=== PATIENT | male | born 1960 ===

== ENCOUNTER 2016-10-09 13:41 | Observation (INO) | payer MEDICAID ==
--- NOTE | 2016-10-09 14:18 | ED PDOC ---
HPI: Psych/Substance Abuse Time Seen by Provider: 10/09/16 14:15 Chief Complaint (Nursing): Alcohol Ingestion Chief Complaint (Provider): etoh History Per: Patient Additional Complaint(s): 56 year old non-domiciled male presents to ED acutely intoxicated. He denies any fall or any recent trauma. He admits to drinking today and states he drinks daily. Patient states he is concerned he either has body lice or other infestation. He denies any rash, fever or chills. Patient denies any chest pain despite chief complaint stating otherwise. Past Medical History Reviewed: Historical Data, Nursing Documentation, Vital Signs Vital Signs: Last Vital Signs Temp 97.0 F L 10/09/16 13:51 Pulse 84 10/09/16 13:51 Resp 14 10/09/16 13:51 BP 144/62 10/09/16 13:51 Pulse Ox 97 10/09/16 13:51 - Medical History PMH: Diabetes, HTN, Seizures (alcohol related) - Surgical History Surgical History: No Surg Hx - Family History Family History: States: No Known Family Hx - Living Arrangements Living Arrangements: Other (non domiciled) - Social History Current smoker - smoking cessation education provided: No Alcohol: > 2 Drinks/Day Drugs: Denies - Home Medications Home Medications: Ambulatory Orders Medication Instructions Recorded No Known Home Med 08/10/16 - Allergies Allergies/Adverse Reactions: Allergies Allergy/AdvReac Type Severity Reaction Status Date / Time No Known Allergies Allergy Verified 10/09/16 13:51 Review of Systems ROS Statement: Except As Marked, All Systems Reviewed And Found Negative Psych: Positive for: Other (etoh) Physical Exam - Reviewed Nursing Documentation Reviewed: Yes Vital Signs Reviewed: Yes - Physical Exam Appears: Positive for: Well, Non-toxic, No Acute Distress Skin: Negative for: Rash Cardiovascular/Chest: Positive for: Regular Rate, Rhythm Respiratory: Positive for: Normal Breath Sounds Neurologic/Psych: Positive for: Alert, Other (intoxicated, answers some questions appropriately) - ECG O2 Sat by Pulse Oximetry: 97 Pulse Ox Interpretation: Normal Medical Decision Making Medical Decision Makin yea old intoxicated male Plan: Decon shower ED observation BAL Fingerstick No body lice or other infestation noted in decon shower, patient has no rash. Patient was given gown and brought to ED room. ED OBSERVATION - Observation admission statement Patient is being placed in observation because:: Acute etoh intoxication - Goals of Observation Goals of observation are:: monitor patient pending sobriety - Progress Note Progress Note: 10/09/16 16:45 Patient is sleeping, arousable. Fingerstick: 118 10/09/16 17:52 BAL is 402, patient is asleep, arousable, vital signs stable. 10/09/16 19:46 Patient is sleeping, arousable, stable. 10/09/16 21:40 Patient is sleeping, arousable, stable. 10/09/16 23:20 Patient is awake and alert, he tolerated tray of food and is noted to be ambulatory with steady gait. He is stable for discharge. Disposition - Clinical Impression Clinical Impression: Alcohol abuse with intoxication - Patient ED Disposition Is Patient to be Admitted: No - Disposition Disposition: Routine/Home Disposition Time: 23:26 Condition: STABLE - POA Present On Arrival: None
[2016-10-09 19:05] VITALS: RESP 16
[2016-10-09 23:54] VITALS: BP 149/87; PULSE 89; TEMP 98.1; O2SAT 99
== END 2016-10-09 23:23 | disposition home or self-care (01) ==
LOC: H.ER 13:41 → H.EROBSV 14:19
PROVIDERS: ADMIT Emergency Medicine; ATTEND Emergency Medicine
DX: F10.129 Alcohol abuse with intoxication, unspecified (principal)